=== PATIENT | male | born 1960 | race Two or more races ===

== ENCOUNTER 2024-02-28 04:53 | Emergency (ER) | payer OTHER ==
[~2024-02-28] VITALS: Ht 193 cm; Wt 117.9 kg
--- NOTE | 2024-02-28 07:12 | ED.PDOC ---
History of Present Illness HPI Comments 63 y/o M is BIBA for c/o bilateral arms and legs tremors, today. Patient is a poor historian and endorses on onset of tremors following taking his prescription "Keppra" medication, this morning, at 0200. Patient states on being unable to ambulate secondary to tremors in addition to reporting on having a isolated seizure episode, with no prior Hx of, 2 days ago. 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 He reports no additional relevant or pertinent Hx. He denies having any weakness, numbness, tingling, pain, fever, chills, or other associated symptoms or modifiers at this time. Chief Complaint: Tremors Time Seen by MD: 06:10 Reviewed Notes: Nurses Notes, Medications, Allergies Information Source: Patient, Emergency Med Personnel Mode of Arrival: EMS Severity: Moderate Timing: Hours Duration: Since onset Prehospital treatment: 12 Lead EKG, Haircutter Past Medical History PAST MEDICAL HISTORY: High Lipids, Seizures Past Medical History (Other): "brain tumor" s/p surgery Surgical History (Other): "brain tumor" s/p surgery Family History Family History: Unknown Social History Smoker: Non-Smoker Alcohol: Denies ETOH Use Drugs: Denies Drug Use Lives In: Home Neurological: reports: tremors All Other Systems: Reviewed and Negative (negative unless otherwises stated above or in HPI) Physical Exam General Appearance: Moderate Distress HEENT: Normal ENT Inspection, Pharynx Normal, TMs Normal Neck: Full Range of Motion, Non-Tender, Normal, Normal Inspection Respiratory: Chest Non-Tender, Lungs Clear, No Accessory Muscle Use, No Respiratory Distress, Normal Breath Sounds Cardiovascular: No Edema, No JVD, No Murmur, No Gallop, Normal Peripheral Pulses, Regular Rate/Rhythm Breast Exam: Deferred Gastrointestinal: No Organomegaly, Non Tender, No Pulsatile Mass, Normal Bowel Sounds, Soft Genitalia: Deferred Pelvic: Deferred Rectal: Deferred Extremities: No calf tenderness, Normal capillary refill, Normal inspection, Normal range of motion, Non-tender, No pedal edema Musculoskeletal : Apperance: Normal Neurologic: Alert, No Motor Deficits Cerebellar Function: NOT DONE Reflexes: NOT DONE Skin: Normal Color Peripheral Pulses: 3+ Radial (R), 3+ Radial (L) Lymphatic: No Adenopathy Was a procedure done? Was a procedure done?: No Differential Dx Considerations may include: electrolyte imbalance, Parkinson's early onset, idiopathic X-Ray, Labs, Meds, VS Vital Signs Date Time Temp Pulse Resp B/P (MAP) Pulse Ox O2 Delivery O2 Flow Rate FiO2 02/28/24 08:52 18 97 Room Air* 0 21 02/28/24 08:51 99.1 74 17 137/57 (83) 95 99.1 02/28/24 08:51 137/57 02/28/24 05:09 98.5 104 19 170/80 (110) 94 Lab Test 02/28/24 07:25 Range/Units White Blood Count 7.4 4.4-10.8 10^3/uL Red Blood Count 4.51 4.5-5.90 10^6/uL Hemoglobin 13.6 13.5-17.5 g/dL Hematocrit 42.4 41.0-53.0 % Mean Corpuscular Volume 94.2 80.0-100.0 fL Mean Corpuscular Hemoglobin 30.3 28.0-32.0 pg Mean Corpuscular Hemoglobin Concent 32.1 32.0-36.0 g/dL Red Cell Distribution Width 14.0 11.8-14.3 % Platelet Count 188 140-450 10^3/uL Mean Platelet Volume 8.9 6.9-10.8 fL Neutrophils (%) (Auto) 66.3 37.0-80.0 % Lymphocytes (%) (Auto) 27.0 10.0-50.0 % Monocytes (%) (Auto) 6.0 0.0-12.0 % Eosinophils (%) (Auto) 0.3 0.0-7.0 % Basophils (%) (Auto) 0.4 0.0-2.0 % Neutrophils # (Auto) 4.9 1.6-8.6 10 ^3/uL Lymphocytes # (Auto) 2.0 0.4-5.4 10 ^3/uL Monocytes # (Auto) 0.4 0-1.3 10 ^3/uL Eosinophils # (Auto) 0 0-0.8 10 ^3/uL Basophils # (Auto) 0 0-0.2 10 ^3/uL Nucleated Red Blood Cells 0.1 % Platelet Estimate Adequate Sodium Level 145 136-145 mmol/L Potassium Level 3.9 3.5-5.1 mmol/L Chloride Level 111 H 98-107 mmol/L Carbon Dioxide Level 28 20-31 mmol/L Anion Gap 6 5-15 Blood Urea Nitrogen 8 L 9-23 mg/dL Creatinine 1.00 0.700-1.30 mg/dL Glomerular Filtration Rate Calc 85 >90 mL/min BUN/Creatinine Ratio 8.0 L 10.0-20.0 Serum Glucose 113 H 74-106 mg/dL Calcium Level 10.2 8.7-10.4 mg/dL Patient alert. Came in because of shaking extremities. Had a seizure few weeks ago. Vitals stable. WBC within normal limits. Hemoglobin within normal limits. Blood pressure elevated. Was given clonidine. He did have surgery at [facility]. Reviewed his previous history. Seizure possibly after brain surgery. Explained to the patient. Continue cardiac monitoring. Patient doing well. Insists on going home. No twitching. Was given prescription of Ativan. No shortness a breath. No chest pain. Was told to follow up with his primary care physician. Was told to come back if there is any problem. [facility] approved ER visit [phone]. Time of 1ST Reevaluation: 06:40 Reevaluation 1ST: Unchanged Patient Education/Counseling: Diagnosis, Treatment Family Education/Counseling: No Family Present Additional Information The following tests were ordered, and results were reviewed by me: BMP, CBC, CXR Additional Information was gathered from interviewing the following independent historians: EMT I reviewed and agreed with the following test results read by other providers: CXR I discussed treatment and results with medical personnel Departure 1 Departure Time of Disposition: 08:18 Impression: Primary Impression: Seizure disorder Additional Impression: Hypertensive urgency Disposition: 01 HOME / SELF CARE / HOMELESS Condition: Good e-Prescriptions Lorazepam (ATIVAN TABLET) 0.5 Mg Tb 1 TAB PO DAILY for 5 Days, #5 TAB Prov: NNEKA GARCIA MD 02/28/24 Discharged With: Self Critical Care Note Critical Care Time?: No Stability Stability form required: No Heart Score Heart Score: Heart Score Response (Comments) Value History N/A 0 EKG N/A 0 Age N/A 0 Risk Factors N/A 0 Troponin N/A 0 Total 0 I personally scribed for NNEKA GARCIA MD ([email or web address]) on 02/28/24 at 07:12. Electronically submitted by Russ Tavera ([email or web address]). NNEKA GARCIA MD Feb 28, 2024 07:12
[2024-02-28 07:49] LABS: Anion Gap 6 (5-15); Carbon Dioxide 28 mmol/L (20-31); Potassium 3.9 mmol/L (3.5-5.1); Sodium 145 mmol/L (136-145)
[2024-02-28 07:50] LABS: Calcium 10.2 mg/dL (8.7-10.4)
[2024-02-28 07:53] LABS: Chloride 111 mmol/L (98-107)
[2024-02-28 07:54] LABS: Basophils # (auto) 0 10 ^3/uL (0-0.2); Basophils % (auto) 0.4 % (0.0-2.0); Eosinophils # (auto) 0 10 ^3/uL (0-0.8); Eosinophils % (auto) 0.3 % (0.0-7.0); Hematocrit 42.4 % (41.0-53.0); Hemoglobin 13.6 g/dL (13.5-17.5); Mean Corpuscular Hemoglobin 30.3 pg (28.0-32.0); Mean Corpuscular Hgb Conc. 32.1 g/dL (32.0-36.0); Mean Corpuscular Volume 94.2 fL (80.0-100.0); Monocytes # (auto) 0.4 10 ^3/uL (0-1.3); Neutrophils # (auto) 4.9 10 ^3/uL (1.6-8.6); Neutrophils % (auto) 66.3 % (37.0-80.0); Nucleated Red Blood Cells % 0.1 %; Platelet Count (auto) 188 10^3/uL (140-450); Red Blood Cells 4.51 10^6/uL (4.5-5.90); White Blood Cell 7.4 10^3/uL (4.4-10.8)
[2024-02-28 08:02] LABS: Blood Urea Nitrogen 8 mg/dL (9-23); Glucose 113 mg/dL (74-106)
[2024-02-28] MEDS: LORazepam 2MG/ML-1ML VIAL IV ONE (08:31)
[2024-02-28] MEDS: cloNIDine HCL 0.1 MG TAB PO ONE (08:51)
[2024-02-28 08:52] VITALS: RESP 18; O2SAT 97
--- NOTE | 2024-02-28 09:03 | DVH ---
CHEST RADIOGRAPH Indication: Cough Technique: Single frontal view of the chest was obtained Comparison: None FINDINGS: Lines and Tubes: None Lungs: The bilateral hemidiaphragms are elevated. Bibasilar opacities. Pleura: No effusion. No pneumothorax. Cardiomediastinal contours: Unremarkable Bones: No acute osseous abnormality. IMPRESSION: 1. Bibasilar opacities.
[2024-02-28 09:04] LABS: Platelet Estimate Adequate
[2024-02-28] MEDS ORDERED: LORA-1121 PO (10:51)
[2024-02-28 11:03] VITALS: BP 135/63; PULSE 88; RESP 17; TEMP 99.1; O2SAT 95
== END 2024-02-28 11:04 | disposition home or self-care (01) ==
LOC: ER 04:53 → EDBD 04:53 → ER 10:57
DX: G40.909 Epilepsy, unspecified, not intractable, without status epilepticus (principal); I16.0 Hypertensive urgency; E78.5 Hyperlipidemia, unspecified; Z98.890 Other specified postprocedural states
CPT/HCPCS: 36415; 71045; 80048; 85025